=== PATIENT | female | born 1965 | race Hispanic/Latino ===

== ENCOUNTER 2021-10-11 23:19 | Inpatient (IN) | payer MEDICAID ==
[~2021-10-11] VITALS: Ht 162.6 cm; Wt 90.4 kg
[2021-10-11 23:47] LABS: BASOPHILS % (AUTO) 0.3 % (0.0-5.0); HEMATOCRIT 35.3 % (36-48); LYMPHOCYTES % (AUTO) 2.1 % (21.0-51.0); MEAN CORPUSCULAR HEMOGLOBIN 30.6 pg (27.0-33.0); MEAN CORPUSCULAR HGB CONC 32.6 g/dL (32.0-36.0); MEAN CORPUSCULAR VOLUME 93.9 fL (79-99); NEUTROPHILS % (AUTO) 88.9 % (40.0-77.0); PLATELET COUNT (AUTO) 155 K/uL (130-400); RED BLOOD CELL COUNT(AUTO) 3.76 MIL/uL (4.00-5.50); RED CELL DISTRIBUTION WIDTH 13.2 % (11.0-15.5); WHITE BLOOD COUNT (AUTO) 17.5 K/uL (4.8-10.8)
[2021-10-11 23:58] LABS: POTASSIUM 3.3 mmol/L (3.5-5.1)
[2021-10-12 00:02] LABS: APPEARANCE,URINE CLEAR (CLEAR); BILIRUBIN,URINE NEGATIVE (NEGATIVE); COLOR,URINE YELLOW (YELLOW); GLUCOSE, URINE (UA) NEGATIVE (NEGATIVE); KETONES,URINE NEGATIVE (NEGATIVE); LEUKOCYTE ESTERASE ,URINE NEGATIVE (NEGATIVE); NITRATE,URINE NEGATIVE (NEGATIVE); OCCULT BLOOD,URINE SMALL (NEGATIVE); PROTEIN,URINE NEGATIVE (NEGATIVE)
[2021-10-12 00:05] LABS: BILIRUBIN,TOTAL 0.8 mg/dL (0.2-1.0); CRP QUANTITATIVE 50.6 mg/L (0.00-9.0); TOTAL PROTEIN, SERUM 6.8 g/dL (6.0-8.3)
[2021-10-12] MEDS ORDERED: 0.9%NACL 1000ML 1,000 ML IV ONE ×2 (00:30→03:16)
[2021-10-12] MEDS ORDERED: ONDANSETRON 4MG INJ IVP ONE (00:30)
[2021-10-12 00:39] LABS: WBC,URINE 0-1 /HPF (0-1)
[2021-10-12 00:40] LABS: BACTERIA,URINE Rare /HPF (None Seen); SQUAMOUS EPITHELIAL CELL,UR Moderate /HPF (0-2)
[2021-10-12] MEDS: ACETAMINOPHEN 500 MG TABLET PO ONE ×2 (00:50→01:04)
[2021-10-12] MEDS ORDERED: ACETAMINOPHEN 325 MG/10.15ML UDCUP ONE (00:56)
[2021-10-12] MEDS ORDERED: IOHEXOL-350 75 ML VIAL IV ONE ×2 (01:20→02:37)
[2021-10-12] MEDS ORDERED: LORAZEPAM 2 MG/ML 1 ML VIAL IVP ONE (02:00)
[2021-10-12] MEDS ORDERED: 0.9%NACL 1000ML 1,000 ML IV SCH ×2 (03:30→04:30)
[2021-10-12] MEDS ORDERED: 0.9%NACL 50ML 50 ML IV ONE (04:20)
[2021-10-12] MEDS ORDERED: ZOSYN 3.375GM +NS 50ML IV ONE (04:30)
[2021-10-12] MEDS ORDERED: ACETAMINOPHEN 325 MG TAB PO PRN ×4 (05:00→07:30)
[2021-10-12] MEDS: ZOSYN 3.375GM +NS 50ML IV SCH ×3 (05:00→21:08)
[2021-10-12] MEDS ORDERED: ONDANSETRON 4MG INJ IVP PRN (05:30)
[2021-10-12 05:45] VITALS: BP 114/57
[2021-10-12] MEDS ORDERED: TERA2CAP4 PO (07:09)
[2021-10-12] MEDS ORDERED: FLUO20CA36 PO (07:09)
[2021-10-12] MEDS ORDERED: LITH300T4 PO (07:09)
[2021-10-12] MEDS ORDERED: DIVA250T60 PO (07:09)
[2021-10-12] MEDS ORDERED: POLY17PO4 PO (07:09)
[2021-10-12] MEDS ORDERED: LINA5TAB PO (07:09)
[2021-10-12] MEDS ORDERED: ROSU5TAB12 PO (07:09)
[2021-10-12] MEDS ORDERED: PANT40TA55 PO (07:09)
[2021-10-12] MEDS ORDERED: OLAN10TA3 PO (07:09)
[2021-10-12] MEDS ORDERED: BETH25 PO (07:09)
[2021-10-12] MEDS ORDERED: MAG/ALUM/SIMETH 30 ML UDCUP PO PRN (07:30)
[2021-10-12] MEDS ORDERED: LACTULOSE 20 GM/30 ML UDCUP PO PRN ×2 (07:30→14:30)
[2021-10-12] MEDS ORDERED: LIDOCAINE HCL-MPF 1% 2ML VIAL IV PRN (07:30)
[2021-10-12] MEDS ORDERED: DEXTROSE 50%-WATER 50 ML DISP.SYRIN IV PRN (07:30)
[2021-10-12] MEDS ORDERED: DIPHENHYDRAMINE HCL 25 MG CAPSULE PO PRN (07:30)
[2021-10-12] MEDS ORDERED: POTASSIUM CHLORIDE 20MEQ/100ML 100 ML IV PRN (07:30)
[2021-10-12] MEDS ORDERED: GLUCAGON 1MG KIT 1 MG ML IM PRN (07:30)
[2021-10-12] MEDS ORDERED: POTASSIUM CHLORIDE 10% ELIXIR 20 MEQ/15 ML UDCUP PO PRN (07:30)
[2021-10-12] MEDS ORDERED: ONDANSETRON 4MG INJ IV PRN (07:30)
[2021-10-12 07:35] VITALS: BP 92/55
[2021-10-12] MEDS: PANTOPRAZOLE 40 MG TAB DR PO SCH (09:03)
[2021-10-12] MEDS: ENOXAPARIN SODIUM 40 MG/0.4 ML SYRINGE SQ SCH (09:03)
[2021-10-12] MEDS: LINAGLIPTIN 5 MG TABLET PO SCH (09:03)
[2021-10-12] MEDS: OLANZAPINE 5 MG TAB PO SCH ×2 (09:08→21:09)
[2021-10-12] MEDS: POLYETHYLENE GLYCOL 3350 17 GM POWD.PACK PO SCH (09:08)
[2021-10-12] MEDS: 0.9%NACL 1000ML 1,000 ML IV SCH ×2 (09:13→16:55)
[2021-10-12] MEDS: BETHANECHOL CHLORIDE 25 MG TABLET PO SCH ×4 (09:15→21:09)
[2021-10-12 11:25] VITALS: BP 116/64
[2021-10-12] MEDS: KCL 20 MEQ ERTAB PO PRN ×3 (13:15→16:54)
[2021-10-12 15:30] VITALS: BP 111/79
[2021-10-12] MEDS ORDERED: DIVA500T2 PO (19:18)
[2021-10-12 20:00] VITALS: BP 129/52
[2021-10-12] MEDS: LITHIUM CARBONATE 150 MG CAPSULE PO SCH (21:08)
[2021-10-13] VITALS (7 sets, daily range): BP systolic 105–133; BP diastolic 47–78
[2021-10-13] MEDS: 0.9%NACL 1000ML 1,000 ML IV SCH ×3 (02:03→22:24)
[2021-10-13] MEDS: ZOSYN 3.375GM +NS 50ML IV SCH ×3 (04:14→22:15)
[2021-10-13 04:34] LABS: HEMATOCRIT 32.7 % (36-48); MEAN CORPUSCULAR HEMOGLOBIN 29.3 pg (27.0-33.0); MEAN CORPUSCULAR HGB CONC 30.3 g/dL (32.0-36.0); MEAN CORPUSCULAR VOLUME 96.7 fL (79-99); RED BLOOD CELL COUNT(AUTO) 3.38 MIL/uL (4.00-5.50); WHITE BLOOD COUNT (AUTO) 9.6 K/uL (4.8-10.8)
[2021-10-13 04:46] LABS: CREATININE 0.8 mg/dL (0.5-1.5); POTASSIUM 4.6 mmol/L (3.5-5.1)
[2021-10-13] MEDS: LINAGLIPTIN 5 MG TABLET PO SCH (09:06)
[2021-10-13] MEDS: PANTOPRAZOLE 40 MG TAB DR PO SCH (09:06)
[2021-10-13] MEDS: BETHANECHOL CHLORIDE 25 MG TABLET PO SCH ×4 (09:06→22:17)
[2021-10-13] MEDS: POLYETHYLENE GLYCOL 3350 17 GM POWD.PACK PO SCH (09:06)
[2021-10-13] MEDS: OLANZAPINE 5 MG TAB PO SCH ×2 (09:06→22:15)
[2021-10-13] MEDS: ENOXAPARIN SODIUM 40 MG/0.4 ML SYRINGE SQ SCH (09:14)
[2021-10-13] MEDS: LITHIUM CARBONATE 150 MG CAPSULE PO SCH (22:16)
[2021-10-14 03:10] VITALS: BP 106/54
[2021-10-14] MEDS: ZOSYN 3.375GM +NS 50ML IV SCH ×3 (04:51→21:35)
[2021-10-14 08:00] VITALS: BP 117/64
[2021-10-14] MEDS: POLYETHYLENE GLYCOL 3350 17 GM POWD.PACK PO SCH (08:35)
[2021-10-14] MEDS: PANTOPRAZOLE 40 MG TAB DR PO SCH (08:35)
[2021-10-14] MEDS: LINAGLIPTIN 5 MG TABLET PO SCH (08:35)
[2021-10-14] MEDS: 0.9%NACL 1000ML 1,000 ML IV SCH ×2 (08:35→21:35)
[2021-10-14] MEDS: ENOXAPARIN SODIUM 40 MG/0.4 ML SYRINGE SQ SCH (08:36)
[2021-10-14] MEDS: OLANZAPINE 5 MG TAB PO SCH ×2 (08:36→21:35)
[2021-10-14] MEDS: BETHANECHOL CHLORIDE 25 MG TABLET PO SCH ×4 (08:38→21:35)
[2021-10-14 09:27] LABS: ALBUMIN 2.8 g/dL (3.5-5.0); BILIRUBIN,DIRECT 0.4 mg/dL (0.0-0.3); BILIRUBIN,TOTAL 0.7 mg/dL (0.2-1.0); CREATININE 0.8 mg/dL (0.5-1.5); POTASSIUM 4.6 mmol/L (3.5-5.1)
[2021-10-14 12:00] VITALS: BP 125/62
[2021-10-14 16:00] VITALS: BP 125/59
[2021-10-14 20:00] VITALS: BP 112/70
[2021-10-14] MEDS: DIVALPROEX SODIUM 250 MG TABLET.DR PO SCH (21:35)
[2021-10-14] MEDS: LITHIUM CARBONATE 150 MG CAPSULE PO SCH (21:36)
[2021-10-15] VITALS: BP 117/66
[2021-10-15 04:00] VITALS: BP 100/54
[2021-10-15 05:34] LABS: HEMATOCRIT 32.7 % (36-48); MEAN CORPUSCULAR HEMOGLOBIN 29.5 pg (27.0-33.0); MEAN CORPUSCULAR HGB CONC 30.9 g/dL (32.0-36.0); MEAN CORPUSCULAR VOLUME 95.6 fL (79-99); RED BLOOD CELL COUNT(AUTO) 3.42 MIL/uL (4.00-5.50); RED CELL DISTRIBUTION WIDTH 13.5 % (11.0-15.5); WHITE BLOOD COUNT (AUTO) 8.6 K/uL (4.8-10.8)
[2021-10-15] MEDS: ZOSYN 3.375GM +NS 50ML IV SCH (05:37)
[2021-10-15 05:38] LABS: CREATININE 0.9 mg/dL (0.5-1.5); POTASSIUM 4.3 mmol/L (3.5-5.1)
[2021-10-15 08:00] VITALS: BP 114/40
[2021-10-15] MEDS ORDERED: LEVO500T90 PO (08:03)
[2021-10-15] MEDS: DIVALPROEX SODIUM 250 MG TABLET.DR PO SCH (08:29)
[2021-10-15] MEDS: BETHANECHOL CHLORIDE 25 MG TABLET PO SCH (08:29)
[2021-10-15] MEDS: PANTOPRAZOLE 40 MG TAB DR PO SCH (08:29)
[2021-10-15] MEDS: OLANZAPINE 5 MG TAB PO SCH (08:30)
[2021-10-15] MEDS: LINAGLIPTIN 5 MG TABLET PO SCH (08:31)
[2021-10-15] MEDS: POLYETHYLENE GLYCOL 3350 17 GM POWD.PACK PO SCH (08:31)
[2021-10-15] MEDS ORDERED: LEVOFLOXACIN 500 MG TABLET PO SCH (09:00)
[2021-10-15] MEDS ORDERED: FLUOXETINE HCL 20 MG CAPSULE PO SCH (09:00)
[2021-10-15 12:00] VITALS: BP 100/59
== END 2021-10-15 13:00 | disposition home health service (06) | DRG 247 ==
LOC: EDH 23:19 → EDHIP 23:20 → OBSVTOIN 23:20 → 3DH 10-12 05:24
PROVIDERS: ADMIT Internal Medicine; ATTEND Internal Medicine
DX: K56.41 Fecal impaction (principal); R78.81 Bacteremia; E11.51 Type 2 diabetes mellitus with diabetic peripheral angiopathy without gangrene; K75.9 Inflammatory liver disease, unspecified; E11.65 Type 2 diabetes mellitus with hyperglycemia; E66.01 Morbid (severe) obesity due to excess calories; B96.20 Unspecified Escherichia coli [E. coli] as the cause of diseases classified elsewhere; E86.0 Dehydration; E86.9 Volume depletion, unspecified; K80.20 Calculus of gallbladder without cholecystitis without obstruction; Z68.35 Body mass index [BMI] 35.0-35.9, adult; F20.9 Schizophrenia, unspecified; F31.9 Bipolar disorder, unspecified; I10 Essential (primary) hypertension; E78.2 Mixed hyperlipidemia; M41.9 Scoliosis, unspecified; M81.0 Age-related osteoporosis without current pathological fracture; R25.1 Tremor, unspecified; Z79.899 Other long term (current) drug therapy
CPT/HCPCS: 36415; 71045; 74178; 76705; 80048; 80053; 80076; 80164; 80178; 81001; 82948; 83605; 84484; 85025; 85027; 86140; 87040; 87077; 87088; 87186; 87635; 87804; 93005; 97039; 99291; C9803; G0378; J1650; J2060; J2405; J2543; J7030; Q9967

== ENCOUNTER 2022-01-07 08:56 | Emergency (ER) | payer MEDICAID ==
[~2022-01-07] VITALS: Ht 165.1 cm; Wt 86.2 kg
[~2022-01-07 08:56] MED LIST: BETH25 PO; DIVA250T60 PO; FLUO20CA36 PO; LEVO500T90 PO; LINA5TAB PO; LITH300T4 PO; OLAN10TA3 PO; PANT40TA55 PO; POLY17PO4 PO; ROSU5TAB12 PO
[2022-01-07 09:48] VITALS: BP 104/68
[2022-01-07 10:14] LABS: BASOPHILS % (AUTO) 0.3 % (0.0-5.0); EOSINOPHILS % (AUTO) 0.7 % (0.0-8.0); HEMATOCRIT 44.4 % (36-48); LYMPHOCYTES % (AUTO) 16.2 % (21.0-51.0); MEAN CORPUSCULAR HEMOGLOBIN 29.4 pg (27.0-33.0); MEAN CORPUSCULAR HGB CONC 31.3 g/dL (32.0-36.0); MEAN CORPUSCULAR VOLUME 94.1 fL (79-99); MONOCYTES % (AUTO) 4.5 % (3.0-13.0); NEUTROPHILS % (AUTO) 77.4 % (40.0-77.0); PLATELET COUNT (AUTO) 198 K/uL (130-400); RED BLOOD CELL COUNT(AUTO) 4.72 MIL/uL (4.00-5.50); RED CELL DISTRIBUTION WIDTH 13.4 % (11.0-15.5); WHITE BLOOD COUNT (AUTO) 11.1 K/uL (4.8-10.8)
[2022-01-07 10:23] LABS: CREATININE 1.1 mg/dL (0.5-1.5)
[2022-01-07 10:28] LABS: ALBUMIN 3.7 g/dL (3.5-5.0); BILIRUBIN,TOTAL 0.4 mg/dL (0.2-1.0)
[2022-01-07 10:52] LABS: APPEARANCE,URINE Clear (CLEAR); BILIRUBIN,URINE Negative (NEGATIVE); COLOR,URINE Dark Yellow (YELLOW); GLUCOSE, URINE (UA) Negative (NEGATIVE); KETONES,URINE Negative (NEGATIVE); LEUKOCYTE ESTERASE ,URINE Trace (NEGATIVE); NITRATE,URINE Negative (NEGATIVE); OCCULT BLOOD,URINE Negative (NEGATIVE); PH,URINE 5.5 (5.0-8.0); PROTEIN,URINE POS 1+ mg/dL (NEGATIVE)
[2022-01-07 11:09] LABS: BACTERIA,URINE Rare /HPF (None Seen); RBC,URINE 0-1 /HPF (0-1); SQUAMOUS EPITHELIAL CELL,UR Rare /HPF (0-2); WBC,URINE 0-1 /HPF (0-1)
[2022-01-07] MEDS ORDERED: 0.9%NACL 1000ML 1,000 ML IV ONE (11:30)
[2022-01-07] MEDS ORDERED: FAMO20TA8 PO (12:01)
== END 2022-01-07 12:07 | disposition home or self-care (01) ==
LOC: EDH 08:56
DX: A08.4 Viral intestinal infection, unspecified (principal); E86.9 Volume depletion, unspecified; Z20.822 Contact with and (suspected) exposure to COVID-19; E11.51 Type 2 diabetes mellitus with diabetic peripheral angiopathy without gangrene; E78.00 Pure hypercholesterolemia, unspecified; I10 Essential (primary) hypertension; Z79.84 Long term (current) use of oral hypoglycemic drugs; Z79.899 Other long term (current) drug therapy
CPT/HCPCS: 36415; 80053; 81001; 85025; 87040 ×2; 87088; 87635; 87804 ×2; 93005; 99284; C9803

== ENCOUNTER 2022-04-12 17:54 | Observation (INO) | payer MEDICAID ==
[~2022-04-12] VITALS: Ht 165.1 cm; Wt 92.3 kg
[~2022-04-12 17:54] MED LIST changes: +FAMO20TA8 PO; +LEVO-70 PO; -LEVO500T90 PO
[2022-04-12] MEDS ORDERED: BUDESONIDE 0.5 MG/2 ML INH IH SCH (18:30)
[2022-04-12] MEDS ORDERED: IPRATROPIUM/ALBUTEROL SULFATE 3 ML SOLUTION IH ONE (18:30)
[2022-04-12 19:15] LABS: BASOPHILS % (AUTO) 0.3 % (0.0-5.0); EOSINOPHILS % (AUTO) 0.1 % (0.0-8.0); LYMPHOCYTES % (AUTO) 7.3 % (21.0-51.0); MEAN CORPUSCULAR HEMOGLOBIN 30.2 pg (27.0-33.0); MEAN CORPUSCULAR HGB CONC 31.6 g/dL (32.0-36.0); MEAN CORPUSCULAR VOLUME 95.3 fL (79-99); MONOCYTES % (AUTO) 8.7 % (3.0-13.0); NEUTROPHILS % (AUTO) 82.5 % (40.0-77.0); PLATELET COUNT (AUTO) 197 K/uL (130-400); RED BLOOD CELL COUNT(AUTO) 4.51 MIL/uL (4.00-5.50); WHITE BLOOD COUNT (AUTO) 18.6 K/uL (4.8-10.8)
[2022-04-12 19:16] LABS: CARBON DIOXIDE 27 mmol/L (21-32); CHLORIDE 105 mmol/L (101-111); CREATININE 1.2 mg/dL (0.5-1.5); GLOMERULAR FILTR. RATE CALC 49 mL/min (>60); GLUCOSE,RANDOM 96 mg/dL (70-105); POTASSIUM 3.7 mmol/L (3.5-5.1); SODIUM SERUM 142 mmol/L (136-145); UREA NITROGEN, BLOOD 23 mg/dL (7-18)
[2022-04-12 19:26] LABS: ALANINE AMINOTRANSFERASE 13 U/L (12-78); ALBUMIN 3.7 g/dL (3.5-5.0); ASPARTATE AMINOTRANSFERASE 14 U/L (10-37); CRP QUANTITATIVE < 2.00 mg/L (0.00-9.0); TOTAL PROTEIN, SERUM 8.1 g/dL (6.0-8.3)
[2022-04-12 19:56] LABS: APPEARANCE,URINE CLEAR (CLEAR); BILIRUBIN,URINE NEGATIVE (NEGATIVE); COLOR,URINE YELLOW (YELLOW); GLUCOSE, URINE (UA) NEGATIVE (NEGATIVE); KETONES,URINE NEGATIVE (NEGATIVE); LEUKOCYTE ESTERASE ,URINE NEGATIVE (NEGATIVE); NITRATE,URINE NEGATIVE (NEGATIVE); OCCULT BLOOD,URINE TRACE-INTACT (NEGATIVE); PH,URINE 5.5 (5.0-8.0); PROTEIN,URINE NEGATIVE (NEGATIVE); UROBILINOGEN,URINE 0.2 mg/dL (0.2-1.0)
[2022-04-12] MEDS ORDERED: 0.9%NACL 1000ML 1,000 ML IV SCH (20:00)
[2022-04-12 20:03] LABS: BACTERIA,URINE Few /HPF (None Seen); MUCUS,URINE Moderate LPF (None Seen); SQUAMOUS EPITHELIAL CELL,UR Rare /HPF (0-2); WBC,URINE 0-1 /HPF (0-1)
[2022-04-12] MEDS: LEVOFLOXACIN 500 MG/D5W 100 ML 100 ML IV SCH (20:11)
[2022-04-12] MEDS ORDERED: ONDANSETRON 4MG INJ IVP PRN (21:00)
[2022-04-12] MEDS ORDERED: ACETAMINOPHEN 325 MG TAB PO PRN (21:00)
[2022-04-12] MEDS ORDERED: LEVOFLOXACIN 500 MG/D5W 100 ML 100 ML IV SCH (21:00)
[2022-04-12 21:45] VITALS: BP 135/90
[2022-04-12] MEDS: METRONIDAZOLE 500MG/100ML BAG 100 ML IVPB SCH (22:03)
[2022-04-12] MEDS: 0.9%NACL 1000ML 1,000 ML IV SCH (22:03)
[2022-04-12 23:39] VITALS: BP 156/60
[2022-04-13 04:30] VITALS: BP 145/60
[2022-04-13] MEDS: 0.9%NACL 1000ML 1,000 ML IV SCH ×2 (06:08→18:02)
[2022-04-13] MEDS: METRONIDAZOLE 500MG/100ML BAG 100 ML IVPB SCH ×3 (06:09→22:19)
[2022-04-13 07:48] VITALS: BP 125/58
[2022-04-13] MEDS ORDERED: DiphenhydrAMINE HCL 50 MG/ML VIAL IV PRN (09:30)
[2022-04-13] MEDS ORDERED: KCL 20 MEQ ERTAB PO PRN (09:30)
[2022-04-13] MEDS ORDERED: DIPHENHYDRAMINE HCL 25 MG CAPSULE PO PRN (09:30)
[2022-04-13] MEDS ORDERED: GLUCAGON 1MG KIT 1 MG ML IM PRN (09:30)
[2022-04-13] MEDS ORDERED: MAG/ALUM/SIMETH 30 ML UDCUP PO PRN (09:30)
[2022-04-13] MEDS ORDERED: DEXTROSE 50%-WATER 50 ML DISP.SYRIN IV PRN (09:30)
[2022-04-13] MEDS ORDERED: POTASSIUM CHLORIDE 10% ELIXIR 20 MEQ/15 ML UDCUP PO PRN (09:30)
[2022-04-13] MEDS ORDERED: POTASSIUM CHLORIDE 20MEQ/100ML 100 ML IV PRN (09:30)
[2022-04-13] MEDS ORDERED: LIDOCAINE HCL-MPF 1% 2ML VIAL IV PRN (09:30)
[2022-04-13 09:37] LABS: HEMATOCRIT 34.5 % (36-48); MEAN CORPUSCULAR HEMOGLOBIN 30.2 pg (27.0-33.0); MEAN CORPUSCULAR HGB CONC 32.8 g/dL (32.0-36.0); MEAN CORPUSCULAR VOLUME 92.2 fL (79-99); RED BLOOD CELL COUNT(AUTO) 3.74 MIL/uL (4.00-5.50); RED CELL DISTRIBUTION WIDTH 13.2 % (11.0-15.5); WHITE BLOOD COUNT (AUTO) 17.8 K/uL (4.8-10.8)
[2022-04-13 09:45] LABS: POTASSIUM 3.9 mmol/L (3.5-5.1)
[2022-04-13 11:26] VITALS: BP 126/80
[2022-04-13] MEDS: INSULIN HUMULIN R 100 UNIT/ML 3ML SQ SCH ×3 (11:30→20:26)
[2022-04-13] MEDS: BETHANECHOL CHLORIDE 25 MG TABLET PO SCH ×3 (13:00→20:26)
[2022-04-13 15:56] VITALS: BP 125/48
[2022-04-13] MEDS ORDERED: FLUT16H NASAL (17:19)
[2022-04-13] MEDS ORDERED: POTA-202 PO (17:19)
[2022-04-13] MEDS ORDERED: DOCU100C33 PO (17:19)
[2022-04-13] MEDS ORDERED: LINA145C PO (17:19)
[2022-04-13] MEDS ORDERED: FURO40TA5 PO (17:19)
[2022-04-13] MEDS ORDERED: CETI10TA57 PO (17:19)
[2022-04-13] MEDS ORDERED: LACTULOSE 20 GM/30 ML UDCUP PO PRN (19:30)
[2022-04-13] MEDS: FAMOTIDINE 20MG TAB PO SCH (20:25)
[2022-04-13] MEDS: OLANZAPINE 5 MG TAB PO SCH (20:25)
[2022-04-13] MEDS: LEVOFLOXACIN 500 MG/D5W 100 ML 100 ML IV SCH (20:25)
[2022-04-13] MEDS: DIVALPROEX SODIUM 250 MG TABLET.DR PO SCH (20:26)
[2022-04-13 20:29] VITALS: BP 115/63
[2022-04-13] MEDS ORDERED: LITHIUM CARBONATE 150 MG CAPSULE PO SCH (21:00)
[2022-04-13 23:52] VITALS: BP 122/49
[2022-04-14 04:20] VITALS: BP 114/60
[2022-04-14] MEDS: 0.9%NACL 1000ML 1,000 ML IV SCH (05:34)
[2022-04-14] MEDS: METRONIDAZOLE 500MG/100ML BAG 100 ML IVPB SCH ×2 (05:34→13:32)
[2022-04-14] MEDS: INSULIN HUMULIN R 100 UNIT/ML 3ML SQ SCH ×2 (05:55→11:30)
[2022-04-14 08:25] VITALS: BP 132/63
[2022-04-14] MEDS ORDERED: ATORVASTATIN 10 MG TABLET PO SCH (09:00)
[2022-04-14] MEDS ORDERED: PANTOPRAZOLE 40 MG TAB DR PO SCH (09:00)
[2022-04-14] MEDS ORDERED: LINAGLIPTIN 5 MG TABLET PO SCH (09:00)
[2022-04-14] MEDS ORDERED: POLYETHYLENE GLYCOL 3350 17 GM POWD.PACK PO SCH (09:00)
[2022-04-14] MEDS ORDERED: FLUOXETINE HCL 20 MG CAPSULE PO SCH (09:00)
[2022-04-14] MEDS ORDERED: ENOXAPARIN SODIUM 30 MG/0.3 ML SQ SCH (09:00)
[2022-04-14] MEDS: BETHANECHOL CHLORIDE 25 MG TABLET PO SCH ×2 (09:16→13:32)
[2022-04-14] MEDS: DIVALPROEX SODIUM 250 MG TABLET.DR PO SCH (09:16)
[2022-04-14] MEDS: FAMOTIDINE 20MG TAB PO SCH (09:16)
[2022-04-14] MEDS: OLANZAPINE 5 MG TAB PO SCH (09:16)
[2022-04-14 10:06] LABS: HEMATOCRIT 35.2 % (36-48); MEAN CORPUSCULAR HEMOGLOBIN 30.1 pg (27.0-33.0); MEAN CORPUSCULAR HGB CONC 31.8 g/dL (32.0-36.0); MEAN CORPUSCULAR VOLUME 94.6 fL (79-99); RED BLOOD CELL COUNT(AUTO) 3.72 MIL/uL (4.00-5.50); RED CELL DISTRIBUTION WIDTH 13.4 % (11.0-15.5); WHITE BLOOD COUNT (AUTO) 11.9 K/uL (4.8-10.8)
[2022-04-14 10:14] LABS: CREATININE 0.8 mg/dL (0.5-1.5); POTASSIUM 4.2 mmol/L (3.5-5.1)
[2022-04-14 11:41] VITALS: BP 132/51
[2022-04-14] MEDS ORDERED: POLY17PO4 PO (13:45)
[2022-04-14] MEDS ORDERED: METR-172 PO (13:51)
[2022-04-14] MEDS ORDERED: LEVO-70 PO (13:52)
== END 2022-04-14 16:45 | disposition home or self-care (01) ==
LOC: EDH 17:54 → EDHIP 17:55 → 3AH 21:45
PROVIDERS: ADMIT Internal Medicine; ATTEND Internal Medicine
DX: U07.1 COVID-19 (principal); K52.9 Noninfective gastroenteritis and colitis, unspecified; F71 Moderate intellectual disabilities; F20.9 Schizophrenia, unspecified; F31.9 Bipolar disorder, unspecified; M41.9 Scoliosis, unspecified; I10 Essential (primary) hypertension; E78.2 Mixed hyperlipidemia; I70.90 Unspecified atherosclerosis; E11.65 Type 2 diabetes mellitus with hyperglycemia; E11.51 Type 2 diabetes mellitus with diabetic peripheral angiopathy without gangrene; E86.0 Dehydration; K80.20 Calculus of gallbladder without cholecystitis without obstruction; K62.5 Hemorrhage of anus and rectum; D72.829 Elevated white blood cell count, unspecified; M81.0 Age-related osteoporosis without current pathological fracture; Z79.84 Long term (current) use of oral hypoglycemic drugs; Z79.899 Other long term (current) drug therapy; Z98.890 Other specified postprocedural states
CPT/HCPCS: 96365; 96367; 99284; 84484; 80053; 83880; 85025; 87040 ×2; 87804 ×2; 83605; 86140; 82270; 81001; 36415 ×3; 87635; 71045; 94640 ×2; 87507; 96361; 96366 ×2; 80048 ×2; 85027 ×2; 82948 ×6; 96372; C9803; J1956 ×2; J7030 ×3; J3490 ×6; G0378 ×32; J1650

== ENCOUNTER 2022-04-29 20:03 | Emergency (ER) | payer MEDICAID ==
[~2022-04-29] VITALS: Ht 167.6 cm; Wt 117.5 kg
[~2022-04-29 20:03] MED LIST changes: +CETI10TA57 PO; +DOCU100C33 PO; +FLUT16H NASAL; +FURO40TA5 PO; +LINA145C PO; +METR-172 PO; +POTA-202 PO
[2022-04-29 20:09] VITALS: BP 158/66
== END 2022-04-29 23:01 | disposition home or self-care (01) ==
LOC: EDH 20:03
DX: J06.9 Acute upper respiratory infection, unspecified (principal); B34.9 Viral infection, unspecified; Z20.822 Contact with and (suspected) exposure to COVID-19; E11.9 Type 2 diabetes mellitus without complications; Z79.899 Other long term (current) drug therapy
CPT/HCPCS: 99283; 87635; 87880; 87804 ×2; C9803

== ENCOUNTER → 2023-03-13 | Outpatient (CLI) | payer MEDICAID ==
[~2023-03-13] MED LIST changes: +ONDA4TAB10 PO
[2023-03-13 12:38] LABS: CREATININE 0.9 mg/dL (0.5-1.5); POTASSIUM 4.9 mmol/L (3.5-5.1)
== END | disposition home or self-care (01) ==
LOC: LAB 10:01
PROVIDERS: ATTEND Internal Medicine Cardiovascular Disease
DX: I10 Essential (primary) hypertension (principal)
CPT/HCPCS: 36415; 80048

== ENCOUNTER → 2023-03-20 | Outpatient (CLI) | payer MEDICAID ==
[~2023-03-20] MED LIST changes: +IOHEXOL 350 MG/ML 100ML INFUS..BTL IV ONE; +IOHEXOL-350 50ML VIAL IV ONE
== END | disposition home or self-care (01) ==
LOC: RAH 09:01 → EDSTATUS 09:30
PROVIDERS: ATTEND Internal Medicine Cardiovascular Disease
DX: I73.9 Peripheral vascular disease, unspecified (principal); N83.202 Unspecified ovarian cyst, left side; K82.8 Other specified diseases of gallbladder; N32.89 Other specified disorders of bladder; M47.815 Spondylosis without myelopathy or radiculopathy, thoracolumbar region; Z96.642 Presence of left artificial hip joint
CPT/HCPCS: 75635; Q9967 ×2

== ENCOUNTER → 2023-07-27 | Outpatient (CLI) | payer MEDICAID ==
[~2023-07-27] MED LIST changes: -IOHEXOL 350 MG/ML 100ML INFUS..BTL IV ONE; -IOHEXOL-350 50ML VIAL IV ONE; +IOHEXOL-350 75 ML VIAL IV ONE
== END | disposition home or self-care (01) ==
LOC: RAH 09:13
PROVIDERS: ATTEND Internal Medicine
DX: N83.202 Unspecified ovarian cyst, left side (principal); M47.815 Spondylosis without myelopathy or radiculopathy, thoracolumbar region; I70.90 Unspecified atherosclerosis
CPT/HCPCS: 74177; Q9967

== ENCOUNTER 2023-09-03 15:23 | Emergency (ER) | payer MEDICAID ==
[~2023-09-03] VITALS: Ht 170.2 cm; Wt 81.6 kg
[~2023-09-03 15:23] MED LIST changes: -IOHEXOL-350 75 ML VIAL IV ONE
[2023-09-03 15:58] VITALS: RESP 18
[2023-09-03 16:34] LABS: BASOPHILS # (AUTO) 0.04 K/uL (0.00-0.20); BASOPHILS % (AUTO) 0.4 % (0.0-5.0); EOSINOPHILS # (AUTO) 0.03 K/uL (0.00-0.70); EOSINOPHILS % (AUTO) 0.3 % (0.0-8.0); IMMATURE GRANULOCYTE ABSOLUTE 0.07 K/uL (0-1); LYMPHOCYTES # (AUTO) 1.7 K/uL (1.0-4.8); LYMPHOCYTES % (AUTO) 18.6 % (21.0-51.0); MEAN CORPUSCULAR HEMOGLOBIN 29.5 pg (27.0-33.0); MEAN CORPUSCULAR HGB CONC 31.1 g/dL (32.0-36.0); MEAN CORPUSCULAR VOLUME 94.8 fL (79-99); MONOCYTES % (AUTO) 10.8 % (3.0-13.0); NEUTROPHILS # (AUTO) 6.3 K/uL (1.8-7.7); NEUTROPHILS % (AUTO) 69.1 % (40.0-77.0); PLATELET COUNT (AUTO) 177 K/uL (130-400); RED BLOOD CELL COUNT(AUTO) 4.64 MIL/uL (4.00-5.50); RED CELL DISTRIBUTION WIDTH 13.2 % (11.0-15.5); WHITE BLOOD COUNT (AUTO) 9.1 K/uL (4.8-10.8)
[2023-09-03 16:53] LABS: CREATININE 0.9 mg/dL (0.5-1.5); POTASSIUM 4.1 mmol/L (3.5-5.1)
[2023-09-03 16:57] LABS: ALBUMIN 3.2 g/dL (3.5-5.0); BILIRUBIN,TOTAL 0.2 mg/dL (0.2-1.0); TOTAL PROTEIN, SERUM 7.8 g/dL (6.0-8.3)
[2023-09-03] MEDS ORDERED: HALOPERIDOL INJ 5 MG/ML VIAL ONE (16:59)
[2023-09-03] MEDS ORDERED: OCTYL 2-CYANOACRYLATE 1 EACH TP ONE (18:50)
[2023-09-03] MEDS ORDERED: MELO5CAP3 PO (19:40)
[2023-09-03 20:29] VITALS: BP 126/48; PULSE 65; O2SAT 98
== END 2023-09-03 20:44 | disposition home or self-care (01) ==
LOC: EDH 15:23
DX: S01.01XA Laceration without foreign body of scalp, initial encounter (principal); M48.56XA Collapsed vertebra, not elsewhere classified, lumbar region, initial encounter for fracture; E11.9 Type 2 diabetes mellitus without complications; E78.00 Pure hypercholesterolemia, unspecified; F20.9 Schizophrenia, unspecified; I10 Essential (primary) hypertension; Z79.1 Long term (current) use of non-steroidal anti-inflammatories (NSAID); Z79.899 Other long term (current) drug therapy; Z79.84 Long term (current) use of oral hypoglycemic drugs; W18.39XA Other fall on same level, initial encounter; Y93.89 Activity, other specified; Y92.89 Other specified places as the place of occurrence of the external cause; Y99.8 Other external cause status
CPT/HCPCS: 12001; 36415; 70450; 71045; 72125; 72128; 72131; 72170; 80053; 85025; J1630

== ENCOUNTER → 2024-12-21 | Outpatient (CLI) | payer MEDICAID ==
[~2024-12-21] MED LIST changes: +CEPH500B PO; +FLUO-418 PO; -FLUO20CA36 PO; -LEVO-70 PO; +MELO5CAP3 PO; -METR-172 PO; -ONDA4TAB10 PO; -ROSU5TAB12 PO; +ROSU5TAB51 PO
--- NOTE | 2024-12-21 13:30 | NUR ---
MBSS COMPLETED (OUTPATIENT). No aspiration; deep non-transient penetration during the swallow with thin liquids via cup sip with no cough response. Recommend pureed solids, mildly thick liquids (nectar thick), and pills crushed with pureed as tolerated. Compensatory strategies: 1. sit upright during oral intake 2. small bites/sips 3. slow oral intake 4. extra dry swallows 5. no straws Diagnostic findings: Pt presented with mild oropharyngeal dysphagia characterized by decreased labial strength, ROM, and coordination; decreased tongue base retraction; delayed pharyngeal response trigger; decreased hyo-laryngeal elevation/excursion and decreased sensation evidenced by decreased labial closure with anterior spillage with spoon presentation; premature spillage to valleculae with occasional spillover to pyriform sinuses; residue on base of tongue, valleculae, pyriform sinuses and posterior pharyngeal wall cleared with extra dry swallows; resulting in deep non-transient penetrations during the swallow with thin liquids via cup sips. No aspirations observed. Pt's provider report patient's baseline is pureed solids. No advanced solids presented on this study. MERCHANDISE TEAM MANAGER reviewed results and recommendations with patient and provider. MERCHANDISE TEAM MANAGER educated patient on risks and consequences of aspiration. Speech therapy not warranted at this time. All questions answered. Addendum: 12/21/[address] JAKI DUARTE Amended: Links added.
--- NOTE | 2024-12-21 15:58 | HMCIMG ---
MODIFIED BARIUM SWALLOW W CINE INDICATION: Dysphagia, unspecified /Profound intellectual disabilities FINDINGS: Fluoroscopic assistance was provided to the speech pathologist while performing examination. For findings and dietary recommendations, refer to speech pathologist's report. IMPRESSION: Modified barium swallow as described.
== END | disposition home or self-care (01) ==
LOC: RAH 12:23
PROVIDERS: ATTEND Internal Medicine
DX: F73 Profound intellectual disabilities (principal); R13.10 Dysphagia, unspecified
CPT/HCPCS: 74230; 92611

== ENCOUNTER → 2025-01-09 | Outpatient (CLI) | payer MEDICAID ==
[~2025-01-09] MED LIST changes: +DIVA250T2 PO; -DIVA250T60 PO
== END | disposition home or self-care (01) ==
LOC: WHH 10:21
PROVIDERS: ATTEND Family Medicine
DX: E11.621 Type 2 diabetes mellitus with foot ulcer (principal); L97.412 Non-pressure chronic ulcer of right heel and midfoot with fat layer exposed; E11.51 Type 2 diabetes mellitus with diabetic peripheral angiopathy without gangrene; E11.22 Type 2 diabetes mellitus with diabetic chronic kidney disease; I12.9 Hypertensive chronic kidney disease with stage 1 through stage 4 chronic kidney disease, or unspecified chronic kidney disease; N18.9 Chronic kidney disease, unspecified; E78.5 Hyperlipidemia, unspecified; M41.9 Scoliosis, unspecified; F31.89 Other bipolar disorder; F20.9 Schizophrenia, unspecified; Z79.899 Other long term (current) drug therapy
CPT/HCPCS: 99215; A6196; A6197; A4450

== ENCOUNTER → 2025-01-30 | Outpatient (CLI) | payer MEDICAID | END | disposition home or self-care (01) | LOC: WHH 10:17 | PROVIDERS: ATTEND Family Medicine | DX: E11.621 Type 2 diabetes mellitus with foot ulcer (principal); L97.412 Non-pressure chronic ulcer of right heel and midfoot with fat layer exposed; E11.51 Type 2 diabetes mellitus with diabetic peripheral angiopathy without gangrene; E11.22 Type 2 diabetes mellitus with diabetic chronic kidney disease; I12.9 Hypertensive chronic kidney disease with stage 1 through stage 4 chronic kidney disease, or unspecified chronic kidney disease; N18.9 Chronic kidney disease, unspecified; E78.5 Hyperlipidemia, unspecified; M41.9 Scoliosis, unspecified; F31.89 Other bipolar disorder; F20.9 Schizophrenia, unspecified; Z79.899 Other long term (current) drug therapy | CPT/HCPCS: 99214 ==